=== PATIENT | female | born 1960 | race African-American/Black ===

== ENCOUNTER 2024-10-29 01:40 | Emergency (ER) | payer MEDICAID ==
[~2024-10-29] VITALS: Ht 172.7 cm; Wt 81.0 kg
[2024-10-29 01:42] VITALS: TEMP 36.9; O2SAT 99
[2024-10-29] MEDS: SODIUM CHLORIDE 0.9% 1,000 ML IV ONE (02:15)
[2024-10-29 02:45] LABS: HEMATOCRIT. 37.3 % (36.0-48.0); HEMOGLOBIN. 12.1 g/dL (12.0-16.0); MEAN CORPUSCULAR HEMOGLOBIN 26.3 pg (28.0-32.0); MEAN CORPUSCULAR HGB CONC 32.5 g/dL (31.0-37.0); MEAN CORPUSCULAR VOLUME 80.9 fL (81.0-99.0); MEAN PLATELET VOLUME 9.1 fl (7.4-10.4); PLATELET 265 x1000/uL (130-400); RED BLOOD CELL COUNT 4.61 mill/uL (4.2-5.4); WHITE BLOOD COUNT 14.7 x1000/uL (4.5-11.0)
[2024-10-29 02:48] LABS: CHLORIDE 107 mEq/L (98-107); SODIUM 144 mEq/L (136-145)
[2024-10-29 02:49] LABS: CALCIUM 8.9 mg/dL (8.7-10.4); CARBON DIOXIDE 24 mEq/L (21-32)
[2024-10-29 02:52] LABS: DIFFERENTIAL COMMENT 1
[2024-10-29 02:53] LABS: INR 1.1; PROTHROMBIN TIME 11.4 sec (9.6-11.0)
[2024-10-29 02:54] LABS: CREATININE 0.8 mg/dL (0.6-1.0); GLUCOSE 138 mg/dL (70-105); UREA NITROGEN BLOOD 10 mg/dL (9-23)
[2024-10-29 02:55] LABS: ETHANOL BLOOD 10 mg/dL (<10)
[2024-10-29 02:56] LABS: TROPONIN I HIGH SENSITIVITY 4 ng/L (3.0-34)
[2024-10-29 03:06] LABS: POTASSIUM 2.7 mEq/L (3.5-5.1)
[2024-10-29 03:16] LABS: CLARITY URINE CLEAR (CLEAR); COLOR URINE YELLOW (YELLOW); GLUCOSE URINE NEGATIVE (NEGATIVE); KETONES URINE NEGATIVE (NEGATIVE); LEUKOCYTE ESTERASE URINE NEGATIVE (NEGATIVE); NITRITE URINE NEGATIVE (NEGATIVE); OCCULT BLOOD URINE NEGATIVE (NEGATIVE); PH URINE 7.5 (4.5-8.0); PROTEIN URINE NEGATIVE (NEGATIVE); SPECIFIC GRAVITY URINE 1.009 (1.005-1.030); UROBILINOGEN URINE 0.2 E.U./dL (0.2-1.0)
[2024-10-29 03:25] LABS: *AMPHETAMINES SCREEN URINE NEGATIVE (NEGATIVE); *BARBITURATES SCREEN URINE NEGATIVE (NEGATIVE); *BENZODIAZEPINES SCREEN URINE NEGATIVE (NEGATIVE); *COCAINE SCREEN URINE PRESUMPTIVE POSITIVE (NEGATIVE); CANNABINOID URINE SCREEN NEGATIVE (NEGATIVE); ECSTASY MDMA SCREEN URINE NEGATIVE (NEGATIVE); METHADONE URINE SCREEN NEGATIVE (NEGATIVE); OPIATES URINE SCREEN NEGATIVE (NEGATIVE); PHENCYCLIDINE URINE SCREEN NEGATIVE (NEGATIVE)
[2024-10-29] MEDS: KCL 10MEQ/50ML PREMIX 50 ML IV SCH (03:46)
[2024-10-29] MEDS: POTASSIUM CHLORIDE 20MEQ TABLET SR PO ONE (03:47)
[2024-10-29 07:17] LABS: ANISOCYTOSIS 1+; PLATELET ESTIMATE NORMAL
[2024-10-29 07:36] VITALS: BP 150/90; PULSE 76; RESP 15; O2SAT 94
== END 2024-10-29 07:50 | disposition home or self-care (01) ==
LOC: ER 01:40
DX: R55 Syncope and collapse (principal); E87.6 Hypokalemia; Z79.899 Other long term (current) drug therapy
CPT/HCPCS: 80305; 80048; 81003; 80320; 83880; 85025; 85610; 84484; 36415; 71045; 93005; 96361; 96365; 96366; 99285; J3480; J7030; Z7610; A4606; G0480